=== PATIENT | female | born 1965 | race African-American/Black ===

== ENCOUNTER 2019-01-22 05:21 | Inpatient (IN) | payer OTHER ==
[2019-01-22] MEDS ORDERED: LACTATED RINGER'S 1,000 ML IV (06:45)
[2019-01-22] MEDS: CEFAZOLIN 2 GM/50 ML (PMX) 50 ML IVPB (06:47)
[2019-01-22] MEDS ORDERED: THROMBIN 5000 UNIT VIAL (06:52)
[2019-01-22] MEDS ORDERED: GELATIN SIZE 100 SPONGE (06:52)
[2019-01-22] MEDS ORDERED: PROPOFOL 20 ML (06:56)
[2019-01-22] MEDS ORDERED: SUCCINYLCHOLINE CHLORIDE 100 MG/5 ML SYG IV (06:56)
[2019-01-22] MEDS: LACTATED RINGER'S 1,000 ML IV ×2 (06:56→06:57)
[2019-01-22] MEDS ORDERED: LIDOCAINE 1% (MDV) 20 ML INJ (06:56)
[2019-01-22] MEDS ORDERED: MIDAZOLAM 1 MG/ML 2 ML INJ (06:56)
[2019-01-22] MEDS ORDERED: hydrALAzine 20 MG INJ IV (07:00)
[2019-01-22] MEDS ORDERED: HYDROmorphONE 1 MG/5 ML IV SYRINGE IV (07:00)
[2019-01-22] MEDS ORDERED: ROCURONIUM 50 MG INJ (07:00)
[2019-01-22] MEDS ORDERED: CEFAZOLIN 2 GM/50 ML (PMX) 50 ML IVPB (07:00)
[2019-01-22] MEDS ORDERED: LABETALOL HCL 20MG INJ IV (07:00)
[2019-01-22] MEDS ORDERED: EPHEDrine 25 MG/5 ML SYG (07:00)
[2019-01-22] MEDS ORDERED: ONDANSETRON 4 MG INJ (07:10)
[2019-01-22] MEDS ORDERED: DEXAMETHASONE 4 MG/ML 5 ML INJ (07:10)
[2019-01-22] MEDS ORDERED: PHENYLephrine (100 MCG/ML) 10ML SYG ×2 (07:20→07:34)
[2019-01-22] MEDS ORDERED: VASOPRESSIN 20 UNITS INJ (07:35)
[2019-01-22] MEDS: POLYMYXIN/BACITRACIN 1L IRRIG IRR (08:23)
[2019-01-22] MEDS: BUPIVACAINE 0.25% (MPF) 30 ML INJ (08:23)
[2019-01-22] MEDS ORDERED: SUGAMMADEX SODIUM 200 MG/2 ML VIAL IV (09:31)
[2019-01-22] MEDS: HYDROmorphONE 1 MG/5 ML IV SYRINGE IV ×3 (09:54→10:21)
[2019-01-22] MEDS: MEPERIDINE 25 MG INJ IV (09:54)
[2019-01-22] MEDS: ONDANSETRON 4 MG INJ IV (09:54)
[2019-01-22] MEDS: HYDROmorphONE 0.2 MG/ML PCA IV ×2 (10:17→21:57)
[2019-01-22] MEDS ORDERED: ONDANSETRON 4 MG INJ IV (11:30)
[2019-01-22] MEDS ORDERED: AL HYDROX/MG HYDROX/SIMETH 30 ML CUP PO (11:30)
[2019-01-22] MEDS ORDERED: HYDROCODONE/APAP (5/325) TAB PO (11:30)
[2019-01-22] MEDS ORDERED: ACETAMINOPHEN 325 MG TAB PO (11:30)
[2019-01-22] MEDS ORDERED: NALOXONE (0.4 MG/ML) INJ IV (11:30)
[2019-01-22] MEDS ORDERED: BETHANECHOL 25 MG TAB PO (11:30)
[2019-01-22] MEDS ORDERED: NACL 0.9% 3 ML SYG IV (11:30)
[2019-01-22] MEDS ORDERED: DIAZEPAM 5 MG/ML SYG IM (11:30)
[2019-01-22] MEDS ORDERED: PROCHLORPERAZINE 10 MG TAB PO (11:30)
[2019-01-22] MEDS ORDERED: TRIMETHOBENZAMIDE 100 MG/ML VIAL IM (11:30)
[2019-01-22] MEDS: DEXTROSE 5%-0.45% NACL 1,000 ML IV ×2 (12:34→21:35)
[2019-01-22] MEDS: CEFAZOLIN 1 GM/50 ML (PMX) 50 ML IVPB ×2 (12:43→18:31)
[2019-01-22] MEDS: DIPHENHYDRAMINE 50 MG CAP PO ×2 (12:58→21:52)
[2019-01-22] MEDS: DIPHENHYDRAMINE 50 MG INJ IV (18:30)
[2019-01-22] MEDS: AMLODIPINE 5 MG TAB PO (21:34)
[2019-01-22] MEDS: ATORVASTATIN 20 MG TAB PO (21:34)
[2019-01-22] MEDS: GABAPENTIN 300 MG CAP PO (21:34)
[2019-01-22] MEDS: RANITIDINE 150 MG TAB PO (21:34)
[2019-01-22] MEDS: PROPRANOLOL 10 MG TAB PO (21:35)
[2019-01-22] MEDS: LOSARTAN 50 MG TAB PO (21:35)
[2019-01-22] MEDS: CEPASTAT LOZENGE MT (21:52)
[2019-01-22] MEDS: traZODone 50 MG TAB PO (21:52)
[2019-01-23] MEDS: CEFAZOLIN 1 GM/50 ML (PMX) 50 ML IVPB ×2 (00:31→05:33)
[2019-01-23 05:20] LABS: HEMATOCRIT 31.6 % (37.0-47.0); HEMOGLOBIN 9.8 g/dl (12.0-16.0)
[2019-01-23] MEDS: DIPHENHYDRAMINE 50 MG CAP PO ×3 (05:33→20:13)
[2019-01-23 05:44] LABS: ANION GAP 6 (5-13); BLOOD UREA NITROGEN 9 mg/dl (7-20); CALCIUM 8.8 mg/dl (8.4-10.2); CARBON DIOXIDE 27 mmol/L (21-31); CHLORIDE 104 mmol/L (97-110); CREATININE 0.94 mg/dl (0.44-1.00); Estimated GFR > 60 mL/min (>60); GLUCOSE 152 mg/dl (70-220); POTASSIUM 4.2 mmol/L (3.5-5.1); SODIUM 137 mmol/L (135-144)
[2019-01-23] MEDS: DEXTROSE 5%-0.45% NACL 1,000 ML IV ×3 (09:32→20:19)
[2019-01-23] MEDS: AMLODIPINE 5 MG TAB PO ×2 (09:36→20:40)
[2019-01-23] MEDS: DOCUSATE SODIUM 100 MG CAP PO ×2 (09:36→20:12)
[2019-01-23] MEDS: RANITIDINE 150 MG TAB PO ×2 (09:36→20:13)
[2019-01-23] MEDS: LOSARTAN 50 MG TAB PO ×2 (09:36→20:40)
[2019-01-23] MEDS: ASCORBIC ACID 500 MG TAB PO ×2 (09:36→20:12)
[2019-01-23] MEDS: PROPRANOLOL 10 MG TAB PO ×2 (09:37→20:40)
[2019-01-23] MEDS: FERROUS SULFATE (EC) 325 MG TAB PO ×3 (09:37→20:13)
[2019-01-23] MEDS: DULOXETINE 30 MG CAP DR PO (09:37)
[2019-01-23] MEDS: GABAPENTIN 300 MG CAP PO ×3 (09:37→20:13)
[2019-01-23] MEDS: HYDROCODONE/APAP (5/325) TAB PO ×3 (09:58→21:13)
[2019-01-23] MEDS: BETHANECHOL 25 MG TAB PO (09:58)
[2019-01-23 11:14] LABS: ADD UMIC YES; UR ASCORBIC ACID NEGATIVE (NEGATIVE); UR BILIRUBIN (Dip) NEGATIVE (NEGATIVE); UR BLOOD (Dip) NEGATIVE (NEGATIVE); UR CLARITY CLEAR (CLEAR); UR COLOR STRAW (YELLOW); UR GLUCOSE (Dip) NEGATIVE (NEGATIVE); UR KETONES (Dip) NEGATIVE (NEGATIVE); UR LEUKOCYTE ESTERASE (Dip) 1+ Leu/ul (NEGATIVE); UR NITRITE (Dip) NEGATIVE (NEGATIVE); UR RBC 1 /HPF (0-5); UR TOTAL PROTEIN (Dip) NEGATIVE (NEGATIVE); UR UROBILINOGEN (Dip) NEGATIVE (NEGATIVE); UR WBC 12 /HPF (0-5)
[2019-01-23] MEDS: ATORVASTATIN 20 MG TAB PO (20:13)
[2019-01-23] MEDS: traZODone 50 MG TAB PO (20:39)
[2019-01-23] MEDS: ZOLPIDEM 5 MG TAB PO (23:26)
[2019-01-24] MEDS: HYDROCODONE/APAP (5/325) TAB PO ×3 (04:54→17:00)
[2019-01-24] MEDS: DIPHENHYDRAMINE 50 MG CAP PO ×2 (05:01→11:50)
[2019-01-24] MEDS: CEPASTAT LOZENGE MT (05:01)
[2019-01-24] MEDS: LACTATED RINGER'S 1,000 ML IV (06:45)
[2019-01-24] MEDS: DIAZEPAM 5 MG TAB PO ×3 (07:08→17:04)
[2019-01-24] MEDS: DULOXETINE 30 MG CAP DR PO (08:58)
[2019-01-24] MEDS: FERROUS SULFATE (EC) 325 MG TAB PO ×2 (08:58→12:06)
[2019-01-24] MEDS: DOCUSATE SODIUM 100 MG CAP PO (08:58)
[2019-01-24] MEDS: RANITIDINE 150 MG TAB PO (08:59)
[2019-01-24] MEDS: PROPRANOLOL 10 MG TAB PO (09:01)
[2019-01-24] MEDS: AMLODIPINE 5 MG TAB PO (09:02)
[2019-01-24] MEDS: ASCORBIC ACID 500 MG TAB PO (09:02)
[2019-01-24] MEDS: LOSARTAN 50 MG TAB PO (09:02)
[2019-01-24] MEDS: GABAPENTIN 300 MG CAP PO ×2 (09:02→12:06)
== END 2019-01-24 19:28 | disposition home or self-care (01) | DRG 520 ==
LOC: REC 05:21 → MS1 12:04
PROC: 01NB0ZZ Release Lumbar Nerve, Open Approach (ICD-10-PCS; principal; 2019-01-22 07:00)
PROC: 00BY0ZX Excision of Lumbar Spinal Cord, Open Approach, Diagnostic (ICD-10-PCS; 2019-01-22 07:00)
PROC: 4A11X4G Monitoring of Peripheral Nervous Electrical Activity, Intraoperative, External Approach (ICD-10-PCS; 2019-01-22 07:00)
DX: M48.061 Spinal stenosis, lumbar region without neurogenic claudication (principal); E88.2 Lipomatosis, not elsewhere classified; I10 Essential (primary) hypertension; E78.5 Hyperlipidemia, unspecified; D64.9 Anemia, unspecified; Z78.0 Asymptomatic menopausal state; Z96.641 Presence of right artificial hip joint
CPT/HCPCS: 72020; 80048; 81001; 85014; 85018; 86850; 86900; 86901; 86920; 87086; 88304; 88311; 97110; 97116; 97162; 97530